=== PATIENT | male | born 1965 | race Caucasian/White ===

== ENCOUNTER 2019-10-28 08:58 | Outpatient (CLI) | payer BC ==
--- NOTE | 2019-10-28 11:24 | RAD ---
SINGLE BARNES VIEW OF SKULL: Date: 10/28/2019 COMPARISON: None. HISTORY: MRI clearance. Possible intraorbital metallic bodies. FINDINGS: Single Barnes view of skull shows no evidence of intraorbital metallic foreign bodies. The visualized paranasal sinuses are well aerated. IMPRESSION: No evidence of intraorbital radiopaque foreign bodies. POS: [facility]
--- NOTE | 2019-10-28 11:30 | MRI ---
MRI LUMBAR SPINE WITH AND WITHOUT CONTRAST: HISTORY: Spinal stenosis of the lumbar spine. Low back pain radiating down the right leg with numbness. COMPARISON: None. FINDINGS: Appropriate T1 marrow signal intensity of the lumbar vertebrae. Lumbar spine vertebral body height is maintained. There is no fracture. There is no significant STIR hyperintensity to suggest vertebral body edema or ligamentous injury. Appropriate signal intensity of the visualized paraspinal muscles and solid organs. Conus medullaris terminates at the inferior aspect of T12. Postcontrast images do not demonstrate any abnormal enhancement of the vertebral bodies. There is no abnormal enhancement within the thecal sac, including the cauda equina and conus medullaris.. T12-L1: Adequate disc hydration. No significant central canal stenosis or significant neural foramina l narrowing. L1-L2: Adequate disc hydration. No significant central canal stenosis or significant neural foraminal narrowing. L2-L3: Adequate disc hydration. No significant central canal stenosis or significant neural foraminal narrowing. Mild ligament flavum thickening and facet hypertrophy are noted. L3-L4: Minimal desiccation without significant loss of disc space height. Broad-based disc bulge with a right subarticular superior disc extrusion. There is mass effect upon the traversing right L3 nerve root secondary to extruded disc material. At the disc space level, narrowing of both subarticul ar zones, right greater than left. Mass effect without obscuration of bilateral traversing L4 nerve roots. Moderate facet hypertrophy with fluid in both facet joints. Mild to moderate bilateral foramin al narrowing. Mild stenosis of the thecal sac. L4-L5: Posterior decompressive laminectomy defect. Disc desiccation without significant loss of disc space height. Broad-based disc bulge with a right subarticular disc herniation. There is evidence of T2 and STIR hyperintensity suggesting an annular fissure. There is mass effect and partial obscura tion of the traversing right L5 nerve root. There is a small focus of enhancing scar tissue in the right subarticular zone, adjacent to the traversing right L5 nerve root. No significant stenosis of t he thecal sac. Moderate bilateral neural foraminal narrowing. L5-S1: Desiccation without significant loss of disc space height. T2 and STIR hyperintensity along th e posterior margin of the disc compatible with annular fissure. No significant central canal stenosis. Posterior laminectomy defect. Bilaterally, mild foraminal narrowing. IMPRESSION: 1. Posterior decompressive laminectomy at L4-L5 and L5-S1. 2. Annular fissure at L4-L5 and L5-S1. Narrowing of the left subarticular zone at L4-L5 due to disc m aterial as well as scar tissue. Partial obscuration of the traversing right L5 nerve root. 3. Right subarticular superior disc extrusion at L3-L4. There is obscuration of the traversing right L3 nerve root. This superior disc extrusion measures 1.3 cm in craniocaudal dimension, Transcribed Date/Time: 10/28/2019 12:10 PM
--- NOTE | 2019-10-28 13:06 | RAD ---
LUMBAR SPINE 3 VIEWS: HISTORY: Low back pain radiating into the right leg. FINDINGS: Vertebral bodies maintain fairly normal height. There is some minimal disk narrowing at L3-4. There are degenerative facet changes present. Postop changes of the L5-S1 level are present. Abnormal mo tion appreciated on these flexion and extension views other than the development of very minimal spon dylolisthesis of L3 on L4 in flexion. IMPRESSION: Minimal spondylolisthesis developing at the L3-4 level in flexion. POS: [facility]
[2019-10-28] MEDS ORDERED: Magnevist 469MG/ML 20 ML VIAL ONE (14:26)
== END 2019-10-28 08:59 | disposition home or self-care (01) ==
LOC: BICMRI 08:58
PROVIDERS: ATTEND Family Medicine
DX: M48.062 Spinal stenosis, lumbar region with neurogenic claudication (principal); M43.16 Spondylolisthesis, lumbar region; M53.86 Other specified dorsopathies, lumbar region; M53.87 Other specified dorsopathies, lumbosacral region; M51.26 Other intervertebral disc displacement, lumbar region; G54.8 Other nerve root and plexus disorders; Z98.890 Other specified postprocedural states
CPT/HCPCS: 70210; 72100; 72158; 82565; A9579

== ENCOUNTER 2019-11-05 05:40 | Day surgery (SDC) | payer BC ==
[2019-11-05] MEDS ORDERED: Thrombin 5000 UNITS/5 ML VIAL ONE (06:10)
[2019-11-05] MEDS ORDERED: EPINEPHrine 1 MG/ML AMP ONE (06:10)
[2019-11-05] MEDS ORDERED: Bupivacaine PF 0.5% 30 ML VIAL ONE (06:10)
[2019-11-05 06:34] LABS: #Basophils 0.1 thou/uL (0.0-0.2); #Eosinphils 0.1 thou/uL (0.0-0.7); #Lymphocytes 3.1 thou/uL (1.20-3.40); #Monocytes 1.1 thou/uL (0.11-0.59); #Neutrophils 8.7 thou/uL (1.40-6.50); %Lymphocytes 23.6 % (21.0-51.0); %Monocytes 8.4 % (0.0-10.0); %Neutrophils 66.1 % (42.0-75.0); Hemoglobin 15.8 g/dL (14.0-18.0); Mean Corpuscular HGB CONC 34.2 g/dL (32.0-36.0); Mean Corpuscular Hemoglobin 32.1 pg (27.0-31.0); Mean Corpuscular Volume 93.8 fL (78.0-98.0); Mean Platelet Volume 8.8 fL (7.4-10.4); Platelet Count 312 thou/uL (130-400); RBC Distribution Width 13.6 % (11.5-14.5); Red Blood Cell (RBC) Count 4.92 mill/uL (4.70-6.10); White Blood Cell (WBC) Count 13.1 thou/uL (4.8-10.8)
[2019-11-05 06:41] LABS: INR-International Normal Ratio 0.9; PTT 25.7 SEC (22.9-36.1); Prothrombin Time 12.2 SEC (12.0-14.7)
[2019-11-05 06:54] LABS: Anion Gap 16 mmol/L (10-20); BUN (Urea Nitrogen) 24 mg/dL (8.4-25.7); Calc. Creatinine Clearance 0 mL/min (70-130); Calcium 10.2 mg/dL (7.8-10.44); Carbon Dioxide 22 mmol/L (22-29); Chloride 105 mmol/L (98-107); Estimated GFR-MDRD Greater than 90; Glucose 131 mg/dL (70-105); Potassium 4.5 mmol/L (3.5-5.1); Sodium 138 mmol/L (136-145)
[2019-11-05] MEDS ORDERED: Midazolam HCl 2 mg/2 ml Vial ONE (06:59)
[2019-11-05] MEDS ORDERED: Fentanyl 250 MCG/5 ML VIAL ONE (06:59)
[2019-11-05] MEDS ORDERED: Fentanyl 100 MCG/2 ML VIAL ONE ×3 (07:02→11:15)
--- NOTE | 2019-11-05 07:16 | HP ---
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 His father was a neurosurgeon who trained at [employer] and practiced in [place], and his brother is a neurosurgeon who trained at [facility] and practices at the [facility]. Mr. Rodriguez himself has had an ACDF in the past. He has also had 2 separate lumbar surgeries. He comes now with a 1-year history of aggravating right thigh pain. He has some weakness in the quadriceps. There is some numbness in the anterior thigh. The left side is not affected. There has been a recent flare- up of this year-long pain that is being managed currently with some intermittent Medrol Dosepak. He has not had any physical therapy lately, nor any injections lately. He has had some of those in the past. There are no bowel or bladder issues. PAST MEDICAL HISTORY: Arthritis, hypercholesterolemia, headaches, and hypertension. PAST SURGICAL HISTORY: Thirty years ago, lumbar decompression; 15 years ago, lumbar diskectomy with decompression; and in 2013, he had an ACDF. MEDICATIONS: Celebrex, lisinopril, Tylenol, and occasional Medrol Dosepak. ALLERGIES: NO KNOWN DRUG ALLERGIES. 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 This involves a significant amount of heavy lifting. He does not use tobacco or illicit drugs. He occasionally has a glass of wine or scotch. He lives with his in [place]. He has children, who are alive and well. FAMILY MEDICAL HISTORY: His father is alive. He is a retired neurosurgeon. He has no known chronic medical diseases. His mother of cancer. Both of his kids are alive and well. REVIEW OF SYSTEMS: Otherwise, negative. PHYSICAL EXAMINATION: VITAL SIGNS: Mr. Rodriguez is 5 feet 10 inches tall, weight 256 pounds. NEUROLOGIC: His cognitive function is normal. His speech is fluent without dysphasia or dysarthria. Cranial nerves are intact. On motor examination in the sitting position, he has weakness in the quadriceps on the right, that is 4/5. The iliopsoas, the hamstrings, the anterior tibia, the EHL, the gastroc, and the toe flexors are all normal. There is numbness in L3/L4 distribution, right leg. On reflex examination, I do not find a patellar reflex on the right. There is one on the left. Ankles are hyporeflexic, and the toes are downgoing. There is no clonus. On walking, there is normal gait. He has strength to walk on his toes and his heels quite well. LABORATORY DATA: MR imaging reveals evidence of previous decompression from L4 through S1. At L3-L4, there is intervertebral disk herniation, that has migrated superiorly. It is behind the L3 vertebral body stretching the L3 and L4 nerve roots. There is some stenosis at that level as well. Flexion-extension x-rays do not show overt instability. IMPRESSION: L3-L4 radiculopathy from superiorly-migrated intervertebral disk herniation at L3-L4. PLAN: Mr. Rodriguez is well aware of what is happening to him. He has a family history of this disease given their professions. He has been hurting for a year, and intermittent Medrol Dosepak are not making it go away. He is interested in surgery. We will perform Lumbar radiculopathy L3-4. DISCUSSION: I discussed injections and therapy. We could start that even before surgical intervention. He is willing to do so if surgery is going to be delayed. Given his age and medical history, an anesthesia clearance will be necessary as well. INFORMED CONSENT: I discussed indications, risks, benefits, alternatives, and expected results from surgery. The risks discussed include, but were not limited to bleeding, infection, CSF leak, nerve damage, cauda equina injury, paralysis, incontinence, wheelchair dependency, major blood vessel injury, and cardiopulmonary complications of anesthesia. Long-term risks include need for future surgery. He understands the risks and is willing to proceed with surgery. Job ID: [id number] [facility]
[2019-11-05] MEDS ORDERED: PHENYLEPHRINE-NS 100 MCG/ML 10 ML SYRINGE ONE (10:24)
[2019-11-05] MEDS ORDERED: Ondansetron PF 4 MG/2 ML Vial ONE (10:24)
[2019-11-05] MEDS ORDERED: Glycopyrrolate 0.2 MG/ML 5 ML SYRINGE ONE (10:24)
[2019-11-05] MEDS ORDERED: PROPOFOL 200 MG/20 ML VIAL ONE (10:24)
[2019-11-05] MEDS ORDERED: EPHEDRINE 25 MG/5 ML SYRINGE ONE (10:24)
[2019-11-05] MEDS ORDERED: Rocuronium Bromide 10 MG/ML (10ML VIAL) ONE (10:24)
[2019-11-05] MEDS ORDERED: Dexamethasone 20 MG/5 ML VIAL ONE (10:24)
[2019-11-05] MEDS ORDERED: traMADol HCl 50 MG TAB PO PRN ×2 (10:42)
[2019-11-05] MEDS ORDERED: Acetaminophen 650 MG Suppository PR PRN (10:42)
[2019-11-05] MEDS ORDERED: diphenhydrAMINE 50 MG/ML VIAL IVP PRN (10:42)
[2019-11-05] MEDS ORDERED: Promethazine HCl 25 MG/ML VIAL IM PRN (10:42)
[2019-11-05] MEDS ORDERED: Ondansetron PF 4 MG/2 ML Vial IVP PRN (10:42)
[2019-11-05] MEDS ORDERED: Promethazine 25 MG TAB PO PRN (10:42)
[2019-11-05] MEDS ORDERED: Morphine 2 MG/ML SYRINGE SLOW IVP PRN (10:42)
[2019-11-05] MEDS ORDERED: diphenhydrAMINE 25 MG CAP PO PRN (10:42)
[2019-11-05] MEDS ORDERED: Morphine 4 MG/ML VIAL SLOW IVP PRN (10:42)
[2019-11-05] MEDS ORDERED: Acetaminophen 325 MG TAB PO PRN (10:42)
[2019-11-05] MEDS ORDERED: tiZANidine HCl 4 MG TAB PO PRN (10:42)
[2019-11-05] MEDS ORDERED: Promethazine HCl 12.5 MG SUPP PR PRN (10:42)
[2019-11-05] MEDS ORDERED: Sodium Chloride 0.9% 1,000 ML IV SCH (10:45)
[2019-11-05] MEDS ORDERED: tiZANidine HCl 4 MG TAB ONE (11:41)
[2019-11-05] MEDS ORDERED: hydrALAZINE 20 MG/ML VIAL ONE (11:42)
[2019-11-05] MEDS ORDERED: Tamsulosin HCl 0.4 MG CAP ONE (12:51)
[2019-11-05] MEDS ORDERED: HYDROcodone/Acetaminophen 5/325 mg Tablet ONE (13:03)
--- NOTE | 2019-11-05 16:13 | OP ---
DATE OF PROCEDURE: 11/05/2019 ANSWERING SERVICE AGENT: Simba Gold PA-C. PREOPERATIVE INDICATION: Treat pain and prevent neurological deterioration. PREOPERATIVE DIAGNOSIS: Prior lumbar surgery, new L3-4 intervertebral disk herniation on the right with L3 and L4 radiculopathies. POSTOPERATIVE DIAGNOSIS: Prior lumbar surgery, new L3-4 intervertebral disk herniation on the right with L3 and L4 radiculopathies. PROCEDURE PERFORMED: Reopening of lumbar incision, right hemilaminectomy, medial facetectomy, foraminotomy at L3-4, microdiskectomy at L3-4, operating microscope. PREOPERATIVE MEDICATION: Ancef 2 g IV. DRAIN NUMBER: Zero. DRAIN TYPE: None. DESCRIPTION OF PROCEDURE: The patient was brought to the operating room. General endotracheal anesthesia was induced. The patient was carefully positioned on the operating table with his chest and hips supported by gel-filled chest rolls. A lateral fluoro radiograph was used to plan our incision. The lumbar skin was sterilely prepped and draped. We opened our planned incision in the center of his previous incisions and controlled bleeding with bipolar and monopolar cautery. We used monopolar cautery to dissect through subcutaneous tissues to the thoracodorsal fascia. His muscle and fascia had been closed superior to the spinous processes and we opened the fascia there and worked our way down to the L3 spinous process. We placed a self-retaining retractor. We dissected the paraspinal muscles off the right side of the L3 lamina and the facet joint as well as all the way to the remnant of the L4 pars interarticularis. A unilateral retractor was placed and a lateral fluoro radiograph confirmed the levels upon which we were operating. We then used a high-speed drill to thin the lamina on the right side of L3. We used a Kerrison rongeur to fashion a hemilaminectomy. We even reached across the midline and removed some of the lamina on the contralateral side as well as yellow ligament and the undersurface of the lamina across the midline to decompress the dura in the canal. This decompression was carried up until we were superior enough to be in-line with the L3 pedicle. The operative microscope was brought into the field. Under microscopic magnification and using microsurgical techniques, we carefully removed the yellow ligament. We dissected the posterior epidural space free of scar tissue. We dissected the lateral epidural space as well. We identified the L4 pedicle. We dissected all the way down to the intersection between the pedicle and vertebral body. This allowed us to verify the L4 nerve root and we retracted the nerve root and the common thecal sac medially. Under the thecal sac was a fresh looking disk herniation. This stretched the L3 and the L4 nerve roots. We incised the superior portion of the disk herniation and multiple fragments of disk came out under some pressure. We swept medially with a blunt probe and curettes and ensured that all of the ventral epidural disk was removed. A small hole in the annulus was found and there was no other fragment of disk that was ready to herniate. We left the remainder of the disk firmly adherent to the endplates. We irrigated copiously with bacitracin irrigation. We controlled ventral epidural bleeding with gentle bipolar cautery. We waxed the bone edges. We ensured our dural decompression across the midline was adequate. We irrigated once again with bacitracin irrigation and infused local anesthetic in the paraspinal muscles. This was revision surgeries. So we treated the wound with vancomycin powder and we closed in anatomical layers. This was a clean case, no contamination. Job ID: [id number]
[2019-11-05] MEDS ORDERED: CEFAZOLIN 2 GM in Premix Bag 1 BAG IVPB SCH (18:30)
[2019-11-05] MEDS ORDERED: Scopolamine 1.5 mg/72 hour Patch TD SCH (18:30)
[2019-11-06] MEDS ORDERED: Tamsulosin HCl 0.4 MG CAP PO SCH (06:00)
== END 2019-11-05 15:56 | disposition home or self-care (01) ==
LOC: SDC 05:40
PROVIDERS: ATTEND Neurological Surgery
PROC: 0ST20ZZ Resection of Lumbar Vertebral Disc, Open Approach (ICD-10-PCS; principal; 2019-11-05)
DX: M51.16 Intervertebral disc disorders with radiculopathy, lumbar region (principal); M48.061 Spinal stenosis, lumbar region without neurogenic claudication; E78.00 Pure hypercholesterolemia, unspecified; I10 Essential (primary) hypertension; Z79.899 Other long term (current) drug therapy
CPT/HCPCS: 36415; 76000; 80048; 85025; 85610; 85730; J0171; J0360; J0690; J1100; J2250; J2405; J2704; J3010; J3370; J3490; S0020

== ENCOUNTER 2020-08-04 08:36 | Outpatient (CLI) | payer BC ==
--- NOTE | 2020-08-04 09:05 | RAD ---
EXAM: XR Lumbar Spine Min 4 View PROVIDED CLINICAL HISTORY: Back pain COMPARISON: 10/28/2019 FINDINGS: 6 nonrib-bearing lumbar-type vertebral bodies are redemonstrated. Lumbar alignment appears unchanged. Vertebral body heights appear preserved. No evidence for abnormal translational motion with flexion and extension. Laminectomy changes involving the lower lumbar spine are redemonstrated. Pedic les appear intact. No lytic or blastic osseous lesions are evident. IMPRESSION: As above.
== END 2020-08-04 08:37 | disposition home or self-care (01) ==
LOC: TBSIIMAG 08:36
PROVIDERS: ATTEND Neurological Surgery
DX: M54.5 Low back pain (principal); Z98.890 Other specified postprocedural states
CPT/HCPCS: 72110

== ENCOUNTER 2023-01-23 13:51 | Day surgery (SDC) | payer BC ==
[2023-01-23] MEDS ORDERED: Acetaminophen 500 MG TAB PO SCH (14:30)
[2023-01-23] MEDS ORDERED: diphenhydrAMINE 25 MG CAP PO SCH (14:30)
[2023-01-23] MEDS ORDERED: diphenhydrAMINE 25 MG CAP ONE (14:45)
[2023-01-23] MEDS ORDERED: Acetaminophen 500 MG TAB ONE (14:45)
[2023-01-23 15:57] VITALS: BP 122/69; TEMP 98.2
== END 2023-01-23 15:50 | disposition home or self-care (01) ==
LOC: ONC/OP 13:51
PROVIDERS: ATTEND Internal Medicine Hematology & Oncology
PROC: 30233R1 Transfusion of Nonautologous Platelets into Peripheral Vein, Percutaneous Approach (ICD-10-PCS; principal; 2023-01-23)
DX: D69.6 Thrombocytopenia, unspecified (principal); D64.9 Anemia, unspecified
CPT/HCPCS: 36430; 80053; 82248; 83615; 84100; 84550; 85384; 85610; 85730; 86850; 86900; 86901; P9035

== ENCOUNTER 2023-03-22 09:54 | Day surgery (SDC) | payer BC ==
[2023-03-22] MEDS ORDERED: diphenhydrAMINE 25 MG CAP PO SCH (10:15)
[2023-03-22] MEDS ORDERED: Acetaminophen 500 MG TAB PO SCH (10:15)
[2023-03-22] MEDS ORDERED: predniSONE 20 MG TAB PO SCH (10:15)
[2023-03-22] MEDS ORDERED: diphenhydrAMINE 25 MG CAP ONE (10:31)
[2023-03-22] MEDS ORDERED: Acetaminophen 500 MG TAB ONE (10:31)
[2023-03-22 12:01] VITALS: TEMP 97.8
[2023-03-22 12:02] VITALS: BP 139/89
== END 2023-03-22 12:04 | disposition home or self-care (01) ==
LOC: ONC/OP 09:54
PROVIDERS: ATTEND Internal Medicine Hematology & Oncology
DX: D69.6 Thrombocytopenia, unspecified (principal)
CPT/HCPCS: 36430; 86850; 86900; 86901; J7512; P9035